=== PATIENT | female | born 1980 | race Hispanic/Latino ===

== ENCOUNTER 2020-11-02 08:41 | Day surgery (SDC) | payer OTHER ==
[2020-11-01 12:52] VITALS: BMI 31.2
[2020-11-02] MEDS ORDERED: Gabapentin 300 MG CAP ONE (08:55)
[2020-11-02] MEDS ORDERED: Famotidine/PF 20 mg/2ml Vial ONE (08:56)
[2020-11-02] MEDS ORDERED: CeleCOXIB 100 MG CAP ONE (08:56)
[2020-11-02] MEDS ORDERED: Lidocaine 1% MPF 2 ML VIAL ONE (09:18)
[2020-11-02] MEDS ORDERED: Lidocaine 2% Jelly 5 ML TUBE ONE (09:39)
[2020-11-02] MEDS ORDERED: Rocuronium Bromide 10 MG/ML (10ML VIAL) ONE (09:40)
[2020-11-02] MEDS ORDERED: Fentanyl 100 MCG/2 ML VIAL ONE ×2 (09:40→13:54)
[2020-11-02] MEDS ORDERED: Lidocaine 1% PF 5 ML VIAL ONE (09:40)
[2020-11-02] MEDS ORDERED: PROPOFOL 20 ML ONE (09:40)
[2020-11-02] MEDS ORDERED: EPINEPHrine 1 MG/ML AMP ONE (09:55)
[2020-11-02] MEDS ORDERED: Bupivacaine PF 0.5% 30 ML VIAL ONE (09:55)
[2020-11-02] MEDS ORDERED: Midazolam HCl 2 mg/2 ml Vial ONE (10:35)
[2020-11-02] MEDS ORDERED: Dexamethasone 20 MG/5 ML VIAL ONE (11:00)
[2020-11-02] MEDS ORDERED: ePHEDrine 50 MG/ML VIAL ONE (11:01)
[2020-11-02] MEDS ORDERED: Glycopyrrolate 0.2 MG/ML 5 ML SYRINGE ONE (11:02)
[2020-11-02] MEDS ORDERED: Ketorolac Tromethamine 30 MG/ML VIAL ONE (13:04)
[2020-11-02] MEDS ORDERED: Ondansetron PF 4 MG/2 ML Vial ONE (13:04)
[2020-11-02] MEDS ORDERED: diphenhydrAMINE 25 MG CAP PO PRN (13:13)
[2020-11-02] MEDS ORDERED: Promethazine HCl 25 MG/ML VIAL IM PRN (13:13)
[2020-11-02] MEDS ORDERED: Bisacodyl 10 MG SUPP PR PRN (13:13)
[2020-11-02] MEDS ORDERED: Simethicone Chewable 80 MG TAB PO PRN (13:13)
[2020-11-02] MEDS ORDERED: traMADol HCl 50 MG TAB PO PRN (13:13)
[2020-11-02] MEDS ORDERED: Fentanyl 100 MCG/2 ML VIAL SLOW IVP PRN (13:13)
[2020-11-02] MEDS ORDERED: Zolpidem Tartrate 5 MG TAB PO PRN (13:13)
[2020-11-02] MEDS ORDERED: Ondansetron PF 4 MG/2 ML Vial IVP PRN (13:13)
[2020-11-02] MEDS: Sodium Chloride 0.9% 1,000 ML IV SCH (17:18)
[2020-11-02] MEDS: Ferrous Gluconate 324 MG TAB PO SCH (20:57)
[2020-11-02] MEDS: Ibuprofen 800 MG TAB PO SCH (20:57)
[2020-11-02] MEDS: HYDROcodone/Acetaminophen 5/325 mg Tablet PO PRN (21:05)
[2020-11-03] MEDS: Sodium Chloride 0.9% 1,000 ML IV SCH ×3 (01:47→12:44)
[2020-11-03] MEDS: Ibuprofen 800 MG TAB PO SCH ×2 (04:24→12:21)
[2020-11-03 06:51] LABS: Hemoglobin 10.1 g/dL (12.0-15.5); Mean Corpuscular HGB CONC 33.4 g/dL (32.0-36.0); Mean Corpuscular Hemoglobin 29.3 pg (27.0-33.0); Mean Corpuscular Volume 87.5 fl (81.6-98.3); Mean Platelet Volume 9.4 fl (7.4-10.4); Platelet Count 227 10x3/uL (150-450); RBC Distribution Width 12.9 % (11.5-14.5); Red Blood Cell (RBC) Count 3.45 10x6/uL (3.90-5.03); White Blood Cell (WBC) Count 12.6 10x3/uL (3.5-10.5)
[2020-11-03 07:53] VITALS: BP 100/57; TEMP 98.7
[2020-11-03] MEDS: HYDROcodone/Acetaminophen 5/325 mg Tablet PO PRN ×3 (08:21→15:50)
[2020-11-03] MEDS: Ferrous Gluconate 324 MG TAB PO SCH (08:22)
== END 2020-11-03 16:13 | disposition home or self-care (01) ==
LOC: EEVIPCON → CSHSDC/OP 08:41 → CSHPP 15:20 → CSHSDC/OP 11-03 16:13
PROVIDERS: ATTEND Student in an Organized Health Care Education/Training Program
PROC: 0UT94ZZ Resection of Uterus, Percutaneous Endoscopic Approach (ICD-10-PCS; principal; 2020-11-03)
PROC: 0UT24ZZ Resection of Bilateral Ovaries, Percutaneous Endoscopic Approach (ICD-10-PCS; principal; 2020-11-03)
PROC: 0UT74ZZ Resection of Bilateral Fallopian Tubes, Percutaneous Endoscopic Approach (ICD-10-PCS; principal; 2020-11-03)
DX: D25.2 Subserosal leiomyoma of uterus (principal); N70.11 Chronic salpingitis; N83.8 Other noninflammatory disorders of ovary, fallopian tube and broad ligament; N80.0 Endometriosis of uterus; D64.9 Anemia, unspecified; Z79.899 Other long term (current) drug therapy
CPT/HCPCS: 85027; 86850; 86900; 86901; 88305; 88307; J0171; J0690; J1100; J1885; J2250; J2405; J2704; J3010; J3490; S0020; S0028